=== PATIENT | female | born 1970 | race Caucasian/White ===

== ENCOUNTER 2017-11-02 13:45 | Inpatient (IN) ==
[2017-11-02 15:30] LABS: Basophils # 0.1 10*3/uL (0.0-0.2); Basophils % 0.4 % (0.0-0.8); Eosinophils # 1.1 10*3/uL (0.0-0.87); Eosinophils % 7.8 % (0.00-10.9); Hematocrit 38.8 VOL% (35.7-47.0); Hemoglobin 12.4 GM/DL (12.0-16.0); Immature Granulocytes % 0.4 %; Immature Granulocytes Absolute 0.06 #; Lymphocytes % 14.7 % (21.3-54.2); Mean Corpuscular Hemoglobin 26 PG (27-34); Mean Platelet Volume 9.7 FL (9.6-12.0); Monocytes # 0.8 10*3/uL (0.11-0.8); Monocytes % 5.5 % (1.7-12.7); Neutrophils # 9.9 10*3/uL (1.4-7.4); Neutrophils % 71.2 % (38.7-73.9); Platelet Count 308 T/CUMM (130-400); Red Blood Count 4.73 MC/CUMM (3.8-5.5); Red Cell Distribution Width 16.2 % (9.3-17.3); White Blood Count 13.9 T/CUMM (4-12)
[2017-11-02 15:57] LABS: Albumin 2.8 G/DL (3.4-5.0); Bilirubin,Total 0.6 MG/DL (0.2-1.0); Calcium 8.8 MG/DL (8.5-10.1); Osmolality,Calculated 280.3 MOS/KG (273-304); Potassium 3.3 MMOL/L (3.5-5.1); Total Protein 7.5 G/DL (6.4-8.3)
[2017-11-02] MEDS ORDERED: CEFTAROLINE 600 MG in SODIUM CHLORIDE 0.9% 100 ML IV STA (17:06)
[2017-11-02] MEDS ORDERED: CEFTAROLINE 600 MG VIAL IV ONE (18:02)
[2017-11-02] MEDS ORDERED: DEXTROSE 50% 25 GM/50 ML VIAL IV PRN (18:51)
[2017-11-02] MEDS ORDERED: GLUCAGON 1 MG VIAL IM PRN (18:51)
[2017-11-02] MEDS ORDERED: ONDANSETRON 4 MG/2 ML VIAL IV PRN (18:51)
[2017-11-02] MEDS ORDERED: CLORAZEPATE 3.75 MG TABLET PO PRN (18:56)
[2017-11-03] MEDS: INSULIN REGULAR 100 UNIT/ML SUBCUT SCH ×5 (00:06→20:37)
[2017-11-03] MEDS: METHYLDOPA 500 MG TABLET PO SCH ×3 (00:06→20:40)
[2017-11-03] MEDS: metFORMIN 500 MG TABLET PO SCH ×3 (00:06→20:39)
[2017-11-03] MEDS: ENOXAPARIN 40 MG/0.4 ML SYRINGE SUBCUT SCH ×2 (00:07→20:38)
[2017-11-03] MEDS: POTASSIUM CHLORIDE 20 MEQ TABLET PO SCH ×4 (00:08→20:39)
[2017-11-03] MEDS: buPROPion 100 MG TABLET PO SCH ×3 (00:08→20:39)
[2017-11-03] MEDS: CEFTAROLINE 600 MG in SODIUM CHLORIDE 0.9% 100 ML IV SCH ×2 (06:02→18:44)
[2017-11-03 06:50] LABS: Basophils # 0.1 10*3/uL (0.0-0.2); Basophils % 0.5 % (0.0-0.8); Eosinophils # 1.1 10*3/uL (0.0-0.87); Eosinophils % 10.4 % (0.00-10.9); Hematocrit 35.5 VOL% (35.7-47.0); Hemoglobin 11.3 GM/DL (12.0-16.0); Immature Granulocytes % 0.5 %; Immature Granulocytes Absolute 0.05 #; Lymphocytes # 2.2 10*3/uL (1.4-4.0); Lymphocytes % 20.6 % (21.3-54.2); Mean Corpuscular HGB Conc 31.8 GM/DL (32-36); Mean Corpuscular Hemoglobin 26 PG (27-34); Mean Corpuscular Volume 82.2 FL (87-102); Mean Platelet Volume 9.7 FL (9.6-12.0); Monocytes # 0.8 10*3/uL (0.11-0.8); Monocytes % 7.7 % (1.7-12.7); Neutrophils # 6.4 10*3/uL (1.4-7.4); Neutrophils % 60.3 % (38.7-73.9); Platelet Count 283 T/CUMM (130-400); Red Blood Count 4.32 MC/CUMM (3.8-5.5); Red Cell Distribution Width 16.2 % (9.3-17.3); White Blood Count 10.7 T/CUMM (4-12)
[2017-11-03 07:16] LABS: Calcium 8.3 MG/DL (8.5-10.1); Osmolality,Calculated 277.4 MOS/KG (273-304); Potassium 3.7 MMOL/L (3.5-5.1)
[2017-11-03] MEDS: LOSARTAN 50 MG TABLET PO SCH (10:15)
[2017-11-03] MEDS: DULoxetine 30 MG CAPSULE PO SCH (10:17)
[2017-11-03] MEDS: CYANOCOBALAMIN 500 MCG TABLET PO SCH (10:18)
[2017-11-03] MEDS: ZINC SULFATE 220 MG CAPSULE PO SCH (10:18)
[2017-11-03] MEDS: CALCIUM (CITRATE)/VITAMIN D 200 MG-125 UNIT TABLET PO SCH (10:18)
[2017-11-03] MEDS: VERAPAMIL SR 240 MG TABLET PO SCH (10:18)
[2017-11-03] MEDS: MELOXICAM 7.5 MG TABLET PO SCH (10:18)
[2017-11-03] MEDS: FUROSEMIDE 40 MG TABLET PO SCH ×2 (10:18→17:02)
[2017-11-03] MEDS: MULTIVITAMIN (BEROCCA) TABLET PO SCH (10:18)
[2017-11-03] MEDS: MULTIVITAMIN (CENTRUM) TABLET PO SCH (10:18)
[2017-11-03] MEDS ORDERED: SKIN HEALING OINT (AQUAPHOR) 50 GM TUBE TOP PRN (15:27)
[2017-11-04] MEDS: CEFTAROLINE 600 MG in SODIUM CHLORIDE 0.9% 100 ML IV SCH ×2 (06:08→19:33)
[2017-11-04 07:06] LABS: Basophils # 0.1 10*3/uL (0.0-0.2); Basophils % 0.6 % (0.0-0.8); Eosinophils # 1.1 10*3/uL (0.0-0.87); Hematocrit 36.8 VOL% (35.7-47.0); Hemoglobin 11.5 GM/DL (12.0-16.0); Immature Granulocytes % 0.4 %; Immature Granulocytes Absolute 0.04 #; Lymphocytes # 2.4 10*3/uL (1.4-4.0); Lymphocytes % 24.1 % (21.3-54.2); Mean Corpuscular HGB Conc 31.3 GM/DL (32-36); Mean Corpuscular Hemoglobin 26 PG (27-34); Mean Corpuscular Volume 82.3 FL (87-102); Mean Platelet Volume 9.7 FL (9.6-12.0); Monocytes # 0.7 10*3/uL (0.11-0.8); Monocytes % 7.4 % (1.7-12.7); Neutrophils # 5.5 10*3/uL (1.4-7.4); Neutrophils % 56.5 % (38.7-73.9); Platelet Count 300 T/CUMM (130-400); Red Blood Count 4.47 MC/CUMM (3.8-5.5); Red Cell Distribution Width 16.1 % (9.3-17.3); White Blood Count 9.7 T/CUMM (4-12)
[2017-11-04 07:26] LABS: Eosinophils 12 % (0-10); Giant Platelets Few; Hypochromasia 1+; Lymphocytes 23 % (20-55); Microcytosis Slight; Ovalocytes Slight; Platelet Estimate Adequate; Segmented Neutrophils 58 % (50-85); Total Cells Counted 100
[2017-11-04 07:39] LABS: Calcium 8.4 MG/DL (8.5-10.1); Magnesium 2.3 MG/DL (1.8-2.4); Osmolality,Calculated 278.3 MOS/KG (273-304); Potassium 3.9 MMOL/L (3.5-5.1)
[2017-11-04] MEDS: INSULIN REGULAR 100 UNIT/ML SUBCUT SCH ×4 (09:25→20:53)
[2017-11-04] MEDS: DULoxetine 30 MG CAPSULE PO SCH (10:30)
[2017-11-04] MEDS: MULTIVITAMIN (CENTRUM) TABLET PO SCH (10:30)
[2017-11-04] MEDS: MELOXICAM 7.5 MG TABLET PO SCH (10:30)
[2017-11-04] MEDS: METHYLDOPA 500 MG TABLET PO SCH ×2 (10:30→20:52)
[2017-11-04] MEDS: buPROPion 100 MG TABLET PO SCH ×2 (10:32→21:40)
[2017-11-04] MEDS: MULTIVITAMIN (BEROCCA) TABLET PO SCH (10:33)
[2017-11-04] MEDS: ZINC SULFATE 220 MG CAPSULE PO SCH (10:33)
[2017-11-04] MEDS: LOSARTAN 50 MG TABLET PO SCH (10:35)
[2017-11-04] MEDS: CYANOCOBALAMIN 500 MCG TABLET PO SCH (10:35)
[2017-11-04] MEDS: VERAPAMIL SR 240 MG TABLET PO SCH (10:36)
[2017-11-04] MEDS: CALCIUM (CITRATE)/VITAMIN D 200 MG-125 UNIT TABLET PO SCH (10:36)
[2017-11-04] MEDS: POTASSIUM CHLORIDE 20 MEQ TABLET PO SCH ×3 (10:37→21:40)
[2017-11-04] MEDS: metFORMIN 500 MG TABLET PO SCH ×2 (10:37→20:52)
[2017-11-04] MEDS: FUROSEMIDE 40 MG TABLET PO SCH ×2 (10:37→15:38)
[2017-11-04] MEDS: NYSTATIN OINT 15 GM TUBE TOP SCH ×2 (15:36→20:53)
[2017-11-04] MEDS: diphenhydrAMINE CAP 25 MG CAPSULE PO PRN (20:53)
[2017-11-04] MEDS: ENOXAPARIN 40 MG/0.4 ML SYRINGE SUBCUT SCH (21:41)
[2017-11-05] MEDS: CEFTAROLINE 600 MG in SODIUM CHLORIDE 0.9% 100 ML IV SCH ×2 (05:18→17:29)
[2017-11-05 07:47] LABS: Basophils # 0.1 10*3/uL (0.0-0.2); Basophils % 0.5 % (0.0-0.8); Eosinophils % 10.9 % (0.00-10.9); Hematocrit 38.1 VOL% (35.7-47.0); Hemoglobin 12.2 GM/DL (12.0-16.0); Immature Granulocytes % 0.5 %; Immature Granulocytes Absolute 0.05 #; Lymphocytes # 2.1 10*3/uL (1.4-4.0); Mean Corpuscular Hemoglobin 26 PG (27-34); Mean Corpuscular Volume 81.4 FL (87-102); Mean Platelet Volume 9.3 FL (9.6-12.0); Monocytes # 0.7 10*3/uL (0.11-0.8); Neutrophils # 5.7 10*3/uL (1.4-7.4); Neutrophils % 59.1 % (38.7-73.9); Platelet Count 306 T/CUMM (130-400); Red Blood Count 4.68 MC/CUMM (3.8-5.5); White Blood Count 9.6 T/CUMM (4-12)
[2017-11-05 08:16] LABS: Calcium 8.7 MG/DL (8.5-10.1); Magnesium 2.2 MG/DL (1.8-2.4); Osmolality,Calculated 281.1 MOS/KG (273-304); Potassium 3.6 MMOL/L (3.5-5.1)
[2017-11-05] MEDS: MELOXICAM 7.5 MG TABLET PO SCH (09:43)
[2017-11-05] MEDS: MULTIVITAMIN (BEROCCA) TABLET PO SCH (09:43)
[2017-11-05] MEDS: ZINC SULFATE 220 MG CAPSULE PO SCH (09:43)
[2017-11-05] MEDS: MULTIVITAMIN (CENTRUM) TABLET PO SCH (09:45)
[2017-11-05] MEDS: LOSARTAN 50 MG TABLET PO SCH (09:45)
[2017-11-05] MEDS: CALCIUM (CITRATE)/VITAMIN D 200 MG-125 UNIT TABLET PO SCH (09:45)
[2017-11-05] MEDS: FUROSEMIDE 40 MG TABLET PO SCH (09:46)
[2017-11-05] MEDS: METHYLDOPA 500 MG TABLET PO SCH ×2 (09:46→21:04)
[2017-11-05] MEDS: DULoxetine 30 MG CAPSULE PO SCH (09:47)
[2017-11-05] MEDS: POTASSIUM CHLORIDE 20 MEQ TABLET PO SCH ×3 (09:47→21:04)
[2017-11-05] MEDS: metFORMIN 500 MG TABLET PO SCH ×2 (09:47→21:03)
[2017-11-05] MEDS: VERAPAMIL SR 240 MG TABLET PO SCH (09:47)
[2017-11-05] MEDS: buPROPion 100 MG TABLET PO SCH ×2 (09:48→21:04)
[2017-11-05] MEDS: INSULIN REGULAR 100 UNIT/ML SUBCUT SCH ×4 (09:52→21:05)
[2017-11-05] MEDS: CYANOCOBALAMIN 500 MCG TABLET PO SCH (09:55)
[2017-11-05] MEDS: NYSTATIN OINT 15 GM TUBE TOP SCH ×2 (09:55→21:05)
[2017-11-05] MEDS: FUROSEMIDE 40 MG/4 ML VIAL IV SCH (17:25)
[2017-11-05] MEDS: ENOXAPARIN 40 MG/0.4 ML SYRINGE SUBCUT SCH (21:05)
[2017-11-06 04:05] LABS: Basophils # 0.1 10*3/uL (0.0-0.2); Basophils % 0.5 % (0.0-0.8); Eosinophils # 1.1 10*3/uL (0.0-0.87); Hematocrit 35.6 VOL% (35.7-47.0); Hemoglobin 11.6 GM/DL (12.0-16.0); Immature Granulocytes % 0.4 %; Immature Granulocytes Absolute 0.05 #; Lymphocytes # 2.5 10*3/uL (1.4-4.0); Mean Corpuscular HGB Conc 32.6 GM/DL (32-36); Mean Corpuscular Hemoglobin 26 PG (27-34); Mean Corpuscular Volume 80.9 FL (87-102); Mean Platelet Volume 9.9 FL (9.6-12.0); Monocytes # 0.8 10*3/uL (0.11-0.8); Monocytes % 7.4 % (1.7-12.7); Neutrophils # 6.7 10*3/uL (1.4-7.4); Neutrophils % 59.7 % (38.7-73.9); Platelet Count 309 T/CUMM (130-400); Red Cell Distribution Width 15.9 % (9.3-17.3); White Blood Count 11.3 T/CUMM (4-12)
[2017-11-06 04:18] LABS: Calcium 8.4 MG/DL (8.5-10.1); Magnesium 2.3 MG/DL (1.8-2.4); Osmolality,Calculated 277.4 MOS/KG (273-304); Potassium 3.8 MMOL/L (3.5-5.1)
[2017-11-06] MEDS: CEFTAROLINE 600 MG in SODIUM CHLORIDE 0.9% 100 ML IV SCH ×2 (05:21→18:37)
[2017-11-06] MEDS: MELOXICAM 7.5 MG TABLET PO SCH (09:35)
[2017-11-06] MEDS: DULoxetine 30 MG CAPSULE PO SCH (09:36)
[2017-11-06] MEDS: CYANOCOBALAMIN 500 MCG TABLET PO SCH (09:36)
[2017-11-06] MEDS: CALCIUM (CITRATE)/VITAMIN D 200 MG-125 UNIT TABLET PO SCH (09:37)
[2017-11-06] MEDS: metFORMIN 500 MG TABLET PO SCH ×2 (09:37→21:39)
[2017-11-06] MEDS: MULTIVITAMIN (BEROCCA) TABLET PO SCH (09:38)
[2017-11-06] MEDS: ZINC SULFATE 220 MG CAPSULE PO SCH (09:39)
[2017-11-06] MEDS: LOSARTAN 50 MG TABLET PO SCH (09:39)
[2017-11-06] MEDS: MULTIVITAMIN (CENTRUM) TABLET PO SCH (09:39)
[2017-11-06] MEDS: METHYLDOPA 500 MG TABLET PO SCH ×2 (09:40→21:38)
[2017-11-06] MEDS: VERAPAMIL SR 240 MG TABLET PO SCH (09:40)
[2017-11-06] MEDS: buPROPion 100 MG TABLET PO SCH ×2 (09:40→21:38)
[2017-11-06] MEDS: POTASSIUM CHLORIDE 20 MEQ TABLET PO SCH ×3 (09:41→21:39)
[2017-11-06] MEDS: NYSTATIN OINT 15 GM TUBE TOP SCH ×2 (09:41→21:38)
[2017-11-06] MEDS: INSULIN REGULAR 100 UNIT/ML SUBCUT SCH ×4 (09:42→21:41)
[2017-11-06] MEDS: FUROSEMIDE 40 MG TABLET PO SCH (10:37)
[2017-11-06] MEDS: FUROSEMIDE 40 MG/4 ML VIAL IV SCH (18:12)
[2017-11-06] MEDS: ENOXAPARIN 40 MG/0.4 ML SYRINGE SUBCUT SCH (21:39)
[2017-11-06] MEDS: diphenhydrAMINE CAP 25 MG CAPSULE PO PRN (21:39)
[2017-11-07 03:28] LABS: Basophils # 0.1 10*3/uL (0.0-0.2); Basophils % 0.7 % (0.0-0.8); Eosinophils # 0.9 10*3/uL (0.0-0.87); Eosinophils % 9.8 % (0.00-10.9); Hematocrit 37.9 VOL% (35.7-47.0); Hemoglobin 11.7 GM/DL (12.0-16.0); Immature Granulocytes % 0.7 %; Immature Granulocytes Absolute 0.06 #; Lymphocytes # 1.8 10*3/uL (1.4-4.0); Lymphocytes % 19.6 % (21.3-54.2); Mean Corpuscular HGB Conc 30.9 GM/DL (32-36); Mean Corpuscular Hemoglobin 26 PG (27-34); Mean Corpuscular Volume 82.8 FL (87-102); Mean Platelet Volume 9.7 FL (9.6-12.0); Monocytes # 0.8 10*3/uL (0.11-0.8); Monocytes % 8.4 % (1.7-12.7); Neutrophils # 5.6 10*3/uL (1.4-7.4); Neutrophils % 60.8 % (38.7-73.9); Platelet Count 288 T/CUMM (130-400); Red Blood Count 4.58 MC/CUMM (3.8-5.5); Red Cell Distribution Width 16.1 % (9.3-17.3); White Blood Count 9.2 T/CUMM (4-12)
[2017-11-07 03:58] LABS: Calcium 8.3 MG/DL (8.5-10.1); Osmolality,Calculated 279.3 MOS/KG (273-304); Potassium 3.8 MMOL/L (3.5-5.1)
[2017-11-07] MEDS: CEFTAROLINE 600 MG in SODIUM CHLORIDE 0.9% 100 ML IV SCH (05:32)
[2017-11-07] MEDS: INSULIN REGULAR 100 UNIT/ML SUBCUT SCH ×2 (08:47→12:33)
[2017-11-07] MEDS: ZINC SULFATE 220 MG CAPSULE PO SCH (09:55)
[2017-11-07] MEDS: MULTIVITAMIN (CENTRUM) TABLET PO SCH (09:55)
[2017-11-07] MEDS: LOSARTAN 50 MG TABLET PO SCH (09:55)
[2017-11-07] MEDS: CYANOCOBALAMIN 500 MCG TABLET PO SCH (09:55)
[2017-11-07] MEDS: MELOXICAM 7.5 MG TABLET PO SCH (09:55)
[2017-11-07] MEDS: DULoxetine 30 MG CAPSULE PO SCH (09:55)
[2017-11-07] MEDS: MULTIVITAMIN (BEROCCA) TABLET PO SCH (09:55)
[2017-11-07] MEDS: buPROPion 100 MG TABLET PO SCH (09:56)
[2017-11-07] MEDS: FUROSEMIDE 40 MG TABLET PO SCH (09:56)
[2017-11-07] MEDS: metFORMIN 500 MG TABLET PO SCH (09:56)
[2017-11-07] MEDS: VERAPAMIL SR 240 MG TABLET PO SCH (09:56)
[2017-11-07] MEDS: CALCIUM (CITRATE)/VITAMIN D 200 MG-125 UNIT TABLET PO SCH (09:56)
[2017-11-07] MEDS: POTASSIUM CHLORIDE 20 MEQ TABLET PO SCH ×2 (09:57)
[2017-11-07] MEDS: METHYLDOPA 500 MG TABLET PO SCH (09:57)
[2017-11-07] MEDS: NYSTATIN OINT 15 GM TUBE TOP SCH (10:02)
[2017-11-07 16:33] VITALS: BP 161/90
== END 2017-11-07 12:25 | disposition home or self-care (01) | DRG 603 ==
LOC: N.ED 13:45 → SUATTDRO 18:51 → N.EDINP 18:51 → N.3E 19:24
PROVIDERS: ADMIT Internal Medicine; ATTEND Hospitalist